=== PATIENT | male | born 1985 | race American Indian/Alaskan Native ===

== ENCOUNTER 2016-09-09 15:54 | Emergency (ER) | payer SELFPAY ==
[2016-09-09] MEDS ORDERED: BACTRIM DS PO ONE (22:09)
[2016-09-09] MEDS ORDERED: KEFLEX PO ONE (22:10)
[2016-09-09] MEDS ORDERED: MOTRIN PO ONE (22:11)
--- NOTE | 2016-09-09 22:13 | Emergency Department Report ---
Abscess Boil HPI - HPI Chief Complaint: Skin/Abscess/Foreign Body Stated Complaint: INFECTION/LT NIPPLE KNOT Time Seen by Provider: 09/09/16 21:27 Duration: 1 Week Location: Chest Severity: Moderate History: Yes Pain, Yes Foreign Body (patient recently removed nipple ring from left nipple), No Fever, No Purulent Drainage, No Numbness, No Previous History, No Insect Bite HPI: 31-year-old male past medical history HIV presents with complaint of swelling at the left nipple/areole for 1 week. Patient states that the base of his left nipple has become progressively more painful and swollen. Patient recently removed a nipple ring from that site. Denies any fever or chills no bloody or purulent drainage. Patient states that his viral load is undetectable and his last CD4 was over 500, taking his HAART medicine regularly Home Medications: Previous Rx's Medication Instructions Recorded Last Taken Type Cephalexin [Keflex] 500 mg PO Q12HR #14 cap 09/09/16 Unknown Rx Ibuprofen [Motrin] 600 mg PO Q8H PRN #25 tablet 09/09/16 Unknown Rx Sulfamethoxazole/Trimethoprim 1 each PO BID PRN #14 tablet 09/09/16 Unknown Rx [Bactrim DS TAB] Allergies/Adverse Reactions: Allergies Allergy/AdvReac Type Severity Reaction Status Date / Time No Known Allergies Allergy Verified 09/09/16 22:31 ED Review of Systems ROS: Stated complaint: INFECTION/LT NIPPLE KNOT Other details as noted in HPI Constitutional: denies: chills, fever Eyes: denies: eye pain, eye discharge, vision change ENT: denies: ear pain, throat pain Respiratory: denies: cough, shortness of breath, wheezing Cardiovascular: denies: chest pain, palpitations Endocrine: no symptoms reported Gastrointestinal: denies: abdominal pain, nausea, diarrhea Genitourinary: denies: urgency, dysuria Musculoskeletal: denies: back pain, joint swelling, arthralgia Skin: as per HPI, lesions (left nippel swelling/pain). denies: rash Neurological: denies: headache, weakness, paresthesias Psychiatric: denies: anxiety, depression Hematological/Lymphatic: denies: easy bleeding, easy bruising ED Past Medical Hx - Medications Home Medications: Home Medications Medication Instructions Recorded Confirmed Last Taken Type Cephalexin [Keflex] 500 mg PO Q12HR #14 cap 09/09/16 Unknown Rx Ibuprofen [Motrin] 600 mg PO Q8H PRN #25 tablet 09/09/16 Unknown Rx Sulfamethoxazole/Trimethoprim 1 each PO BID PRN #14 tablet 09/09/16 Unknown Rx [Bactrim DS TAB] ED Abscess Boil Physical Exam - Exam General: Vital signs noted. No distress. Alert and acting appropriately. Front/Back of Body, Lg (Color): 1 - small 1.5 cm abscess superior to left nipple, midl surrounding induration Size: 2 cm Exam: Yes Tenderness, Yes Fluctuance (mild degree of fluctuance), Yes Surrounding Cellulites/Erythema (small amoutn of erythema 1-2cm), No Lymphangitis, No Crepitation, No Heart Murmur, No Normal Neurologic Exam, No Normal Circulation I & D Note - I & D Note I & D Note: small abscess drained with small horizontal incision above left nipple. stab incision ~ 0.5cm in length ED Course Vital Signs 09/09/16 16:00 Temperature 98.1 F Pulse Rate 80 Respiratory 16 Rate Blood Pressure 137/69 O2 Sat by Pulse 98 Oximetry Critical care attestation.: If time is entered above; I have spent that time in minutes in the direct care of this critically ill patient, excluding procedure time. ED Medical Decision Making - Medical Decision Making A/P: Small left nipple abscess 1- I&D w/ minimal pus drainage in the left areola in superior aspect above the left nipple. Abscess very small scant amount of purulent drainage. 2- wound culture sent 3- Bactrim and Keflex twice a day 7 days 4- Motrin when necessary for pain 5- I instructed patient to return to the ED for any fever or chills spread of cellulitis or reaccumulation of abscess. Borders marked, diameter ~1.5-2cm. 6- pt states he has a f/u appointment with his PCP this week. ED Disposition Clinical Impression: Abscess Disposition: DISCHARGED TO HOME OR SELFCARE Is pt being admited?: No Does the pt Need Aspirin: No Condition: Stable Instructions: Abscess (ED) Prescriptions: Sulfamethoxazole/Trimethoprim [Bactrim DS TAB] 1 each PO BID PRN #14 tablet PRN Reason: Pain Cephalexin [Keflex] 500 mg PO Q12HR #14 cap Ibuprofen [Motrin] 600 mg PO Q8H PRN #25 tablet PRN Reason: Pain Time of Disposition: 23:03
[2016-09-09] MEDS ORDERED: TRIPLE ANTIBIOTIC TP ONE (22:16)
[2016-09-09] MEDS ORDERED: XYLOCAINE 1% 20 mL INFILTRATI ONE (22:16)
[2016-09-09] MEDS ORDERED: XYLOCAINE 2% INFILTRATI ONE ×2 (22:16→22:22)
[2016-09-09 23:51] VITALS: BP 125/80
== END 2016-09-09 23:52 | disposition home or self-care (01) ==
LOC: ED 15:54
DX: N61.1 Abscess of the breast and nipple (principal)
CPT/HCPCS: 86403; 87116; 87186; A6250